=== PATIENT | male | born 1955 | race Caucasian/White ===

== ENCOUNTER 2017-01-14 21:09 | Emergency (ER) | payer OTHER | END 2017-01-14 22:00 | disposition home or self-care (01) | LOC: ER 21:09 | DX: S90.31XA Contusion of right foot, initial encounter (principal); S80.812A Abrasion, left lower leg, initial encounter; S80.811A Abrasion, right lower leg, initial encounter; I10 Essential (primary) hypertension; Z87.891 Personal history of nicotine dependence; Z88.0 Allergy status to penicillin; Z88.5 Allergy status to narcotic agent; Z88.6 Allergy status to analgesic agent; W11.XXXA Fall on and from ladder, initial encounter ==